=== PATIENT | male | born 1960 | race Caucasian/White ===

== ENCOUNTER 2016-06-13 11:59 | Emergency (ER) | payer BC, MEDICARE ==
[2016-06-13 13:00] VITALS: BP 129/71
--- NOTE | 2016-06-13 13:33 | UC ---
Neck Pain HPI - HPI Summary HPI Summary: He complains of about 1-2 years of neck pain and he points to the base of the skull. He gets pain with certain movements and he will get cracking and have sudden pain with this. It feels better with movement and physical work but afterward it stiffens up and he has more pain. No new numbness or weakness. 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 Dr. Valles has been his surgeon in the past and he has had three neck surgeries/fusions. He would like refills of elivil and lamictal. He has had this prior for depression and chronic pain from a pain clinic in [place]. - History of Current Complaint Chief Complaint: UCBackPain Stated Complaint: BACK PAIN Time Seen by Provider: 06/13/16 12:43 Hx Obtained From: Patient Onset/Duration Of Injury/Symptoms: Months Timing: Constant Onset/Duration: Still Present Severity: Severe Location: Discrete At: - upper c spine. Character: Aching, Stiff Aggravating Factors: Position, Movement Alleviating Factors: Position Associated Signs & Symptoms: Positive: Negative Related History: Previous Neck Injury - Allergies/Home Medications Allergies/Adverse Reactions: Allergies Allergy/AdvReac Type Severity Reaction Status Date / Time No Known Allergies Allergy Verified 06/13/16 12:48 Home Medications: Home Medications Amitriptyline TAB* [Elavil TAB*] 75 mg PO TID 06/13/16 [History Confirmed ] lamoTRIgine TAB(*) [LaMICtal TAB(*)] 40 mg PO TID 06/13/16 [History Confirmed ] PMH/Surg Hx/FS Hx/Imm Hx Endocrine History Of: Denies: Diabetes Cardiovascular History Of: Denies: Pacemaker/ICD - Surgical History Surgical History: Yes Surgery Procedure, Year, and Place: CSP - FUSION Xs 3; - Family History Known Family History: Negative: Diabetes - Social History Occupation: Employed Full-time Alcohol Use: None Substance Use Type: None Smoking Status (MU): Heavy Every Day Tobacco Smoker Amount Used/How Often: 1ppd Review Of Systems All Other Systems Reviewed And Are Negative: Yes Physical Exam Triage Information Reviewed: Yes Appearance: Well-Appearing, No Pain Distress - He is pleasant and doesn't appear to be in pain but does appear stiff., Well-Nourished Vital Signs: Initial Vital Signs Temp 99 F 06/13/16 12:41 Pulse 76 06/13/16 12:41 Resp 15 06/13/16 12:41 BP 129/71 06/13/16 12:41 Pulse Ox 97 06/13/16 12:41 Vital Signs Reviewed: Yes Eyes: Positive: Conjunctiva Clear ENT Exam: Normal Neck: Positive: No Lymphadenopathy Respiratory Exam: Normal Respiratory: Positive: Chest non-tender, Lungs clear, Normal breath sounds. Negative: No respiratory distress Cardiovascular Exam: Normal Cardiovascular: Positive: Pulses Normal, Brisk Capillary Refill Abdominal Exam: Normal Abdomen Description: Positive: Nontender, No Organomegaly, Soft Musculoskeletal Exam: Other - Neck has obvious loss of rom which he states is chronic. he has no midline tenderness. Musculoskeletal: Positive: Strength Intact Neurological Exam: Normal Neurological: Positive: Alert Psychological Exam: Normal Skin Exam: Normal Skin: Negative: rashes Neck Pain Course/Dx - Course Course Of Treatment: I believe Mr Pearson. He is not asking for pain medications. He is working on a farm 7 days a week but will have significant stiffness after he rests for a while. He has certain positions during sleep that he can sleep in. He has had three fusions by Dr. Echevarria but would like a second opinion from the [place] [facility] as dr Echevarria stated there was nothing more to do. I have encouraged him to get a new pcp and chronic pain managment doctor. I will place in referral to [facility] at [facility]. - Differential Dx/Diagnosis Differential Dx/HQI/PQRI: Arthritis, Cervical Fracture, Sprain, Strain Provider Diagnoses: chronic neck pain. neck crepitus. Discharge - Discharge Plan Condition: Fair Disposition: HOME Prescriptions: Amitriptyline TAB* [Elavil TAB*] 75 mg PO TID #90 tab lamoTRIgine TAB(*) [LaMICtal TAB(*)] 40 mg PO TID #90 tab Patient Education Materials: Neck Pain (ED) Referrals: [facility] [Outside] - 1 Week Yonis Almonte MD [Medical Doctor] - 1 Week Palmer Trivedi DO [Doctor of Osteopathy] - 1 Week
--- NOTE | 2016-06-13 13:54 | RAD ---
Indication: Upper neck pain. Prior fusion. 3 views of the cervical spine demonstrates fusion of C3, C4, C5, C6, C7, T1, T2. C1 and C2 appears to be intact. IMPRESSION: Posterior fusion of the C3-T2.
== END 2016-06-13 13:59 | disposition home or self-care (01) ==
LOC: UCCORT 11:59
DX: M54.2 Cervicalgia (principal); M24.80 Other specific joint derangements of unspecified joint, not elsewhere classified; F17.210 Nicotine dependence, cigarettes, uncomplicated
CPT/HCPCS: 72040; 99212; G0463